=== PATIENT | female | born 1980 | race Caucasian/White ===

== ENCOUNTER 2016-10-24 13:31 | Emergency (ER) | payer OTHER ==
[~2016-10-24 13:31] MED LIST: ALBUTEROL17 GM INH; AMOXICILLIN PO; AMOXICILLIN500 M1 PO; AUGMENTIN875 MG PO; BACTRIM DS TABL1 TA1 PO; BENADRYL25 M1 PO; CIPRO PO; DIFLUCAN PO; EXCEDRIN EXTRA1 TAB PO; FLEXERIL10 MG PO; GABAPENTIN600 MG PO; HYDROCODON-ACET15 M1 PO; HYDROCODONE/APA1 T16 PO; IBUPROFEN800 MG PO; KEFLEX500 MG PO; LORTAB 7.5-5001 TAB PO; METHADONE PO; MOTRIN600 M2 PO; NAPROSYN500 MG PO; NAPROXEN375 MG PO; NO MEDICATIONS; NORFLEX100 M1 PO; OXYCODONE HCL10 MG PO; OXYCODONE HCL20 M1 PO; PEN-VEE K PO; PHENERGAN25 M1 PO; PREDNISONE PO; ROBAXIN 750750 M1 PO; ROBITUSSIN A-C10 ML PO; TOPAMAX25 MG PO; TYLENOL #3 PO; VOLTAREN50 MG PO; VOLTAREN75 MG PO; ZITHROMAX PO
[2016-10-24] MEDS ORDERED: GABAPENTIN600 MG (13:54)
== END 2016-10-24 14:25 | disposition home or self-care (01) ==
LOC: SED 13:31
DX: B00.2 Herpesviral gingivostomatitis and pharyngotonsillitis (principal); F17.200 Nicotine dependence, unspecified, uncomplicated
CPT/HCPCS: 99283